=== PATIENT | male | born 1960 | race Hispanic/Latino ===

== ENCOUNTER 2018-09-11 18:25 | Emergency (ER) | payer MEDICARE ==
[2018-09-11 18:29] VITALS: BMI 25.8
[2018-09-11 18:34] VITALS: BP 160/80; PULSE 63; RESP 18; TEMP 98; O2SAT 100
--- NOTE | 2018-09-11 19:24 | C.PDOC ---
History Of Present Illness 58 y/o male presents to the ED complaining he has been in a manic state for the past few days. He denies any suicidal or homicidal ideation. Patient states he has outpatient psychiatric appointment on . Additionally patient complains of cough, congestion, and runny nose since last . When asked if he has any other complaints, patient states he needs help getting transportation to [facility]. Time Seen by Provider: 09/11/18 18:46 Chief Complaint (Nursing): Cough, Cold, Congestion History Per: Patient History/Exam Limitations: no limitations Onset/Duration Of Symptoms: Days Current Symptoms Are (Timing): Still Present Past Medical History Reviewed: Historical Data, Nursing Documentation, Vital Signs Vital Signs: Last Vital Signs Temp 98 F 09/11/18 18:29 Pulse 63 09/11/18 18:29 Resp 18 09/11/18 18:29 BP 160/80 H 09/11/18 18:29 Pulse Ox 100 09/11/18 18:29 - Medical History PMH: Bipolar Disorder, Diabetes Family History: States: No Known Family Hx - Social History Hx Alcohol Use: No Hx Substance Use: No - Immunization History Hx Tetanus Toxoid Vaccination: No Hx Influenza Vaccination: Yes (2 months ago) Hx Pneumococcal Vaccination: No Review Of Systems Constitutional: Negative for: Fever ENT: Positive for: Nose Discharge, Nose Congestion Cardiovascular: Negative for: Chest Pain Respiratory: Positive for: Cough. Negative for: Shortness of Breath Gastrointestinal: Negative for: Vomiting, Abdominal Pain, Diarrhea Neurological: Negative for: Weakness, Headache Psych: Positive for: Other (Manic episode). Negative for: Suicidal ideation (or homicidal) Physical Exam - Physical Exam Appears: Well, Non-toxic, No Acute Distress Skin: Normal Color, Warm, Dry Head: Atraumatic, Normacephalic Eye(s): bilateral: Normal Inspection, PERRL, EOMI Oral Mucosa: Moist Neck: Normal ROM Chest: Symmetrical Cardiovascular: Rhythm Regular, No Murmur Respiratory: Normal Breath Sounds, No Rales, No Rhonchi, No Wheezing, Other (No respiratory distress) Gastrointestinal/Abdominal: Soft, No Tenderness, No Distention Extremity: Bilateral: Normal Color And Temperature, Normal ROM Neurological/Psych: Oriented x3, Other (Some pressured speech) ED Course And Treatment O2 Sat by Pulse Oximetry: 100 (RA) Pulse Ox Interpretation: Normal Medical Decision Making Medical Decision Making: Impression: Normal exam Patient presenting with cough and congestion. Counseled regarding likely viral etiology, encouraged symptomatic treatment. No acute psychiatric emergency -- Patient advised to follow up with his psychiatrist on as scheduled. Patient is medically stable for discharge. Explained that transfer cannot be arranged to transport him back to [facility]. Resources for local homeless shelters provided. Disposition - Disposition Disposition: HOME/ ROUTINE Disposition Time: 19:18 Condition: STABLE Additional Instructions: LOWELL MORGAN, thank you for letting us take care of you today. Your provider was Norma Sifuentes MD and you were treated for COLD SYMPTOMS ,COUGH. The emergency medical care you received today was directed at your acute symptoms. If you were prescribed any medication, please fill it and take as directed. It may take several days for your symptoms to resolve. Return to the Emergency Department if your symptoms worsen, do not improve, or if you have any other problems. Please contact your doctor or call one of the physicians/clinics you have been referred to that are listed on the Patient Visit Information form that is included in your discharge packet. Bring any paperwork you were given at discharge with you along with any medications you are taking to your follow up visit. Our treatment cannot replace ongoing medical care by a primary care provider outside of the emergency department. Thank you for allowing the [facility] team to be part of your care today. If you had an X-Ray or CT scan: A Radiologist will review the ED reading if any change in treatment is needed we will contact you. If you had a blood, urine, or wound culture: It will take several days for the results, if any change in treatment is needed we will contact you. If you had an STI test: It will take 48 hours for the results. Please call after 1 week if you have not heard back. Instructions: Upper Respiratory Infection (ED) Forms: [employer] (Kyrgyz) - Clinical Impression Clinical Impression: Nancie, URI (upper respiratory infection) - Scribe Statement The provider has reviewed the documentation as recorded by the Coniibfany Foley Provider Attestation: All medical record entries made by the Coniibfany were at my direction and personally dictated by me. I have reviewed the chart and agree that the record accurately reflects my personal performance of the history, physical exam, medical decision making, and the department course for this patient. I have also personally directed, reviewed, and agree with the discharge instructions and disposition.
== END 2018-09-11 19:31 | disposition home or self-care (01) ==
LOC: C.ER 18:25
DX: J06.9 Acute upper respiratory infection, unspecified (principal); F30.9 Manic episode, unspecified; E11.9 Type 2 diabetes mellitus without complications; F31.9 Bipolar disorder, unspecified